=== PATIENT | female | born 1975 ===

== ENCOUNTER 2017-11-23 07:26 | Emergency (ER) | payer OTHER ==
[~2017-11-23] VITALS: Ht 160 cm; Wt 63.5 kg
[2017-11-23] MEDS ORDERED: MEDROLPACK PO (08:07)
[2017-11-23] MEDS ORDERED: IPRAT-ALBUT 0.5-3 ML IH (08:07)
[2017-11-23] MEDS ORDERED: PROMETH-CODEIN 65 ML PO (08:07)
[2017-11-23] MEDS ORDERED: PREDNISOLO15 MG/5 ML PO (08:07)
== END 2017-11-23 08:20 | disposition home or self-care (01) ==
LOC: ER 07:26
DX: J06.9 Acute upper respiratory infection, unspecified (principal)